=== PATIENT | male | born 1960 | race Caucasian/White ===

== ENCOUNTER 2016-12-31 11:33 | Emergency (ER) | payer OTHER ==
[~2016-12-31 11:33] MED LIST: BUSPAR5 MG PO; CARDIZEM CD180 MG PO; ELIQUIS5 MG PO; GLUCOPHAGE1000 MG PO; GLUCOTROL5 MG PO; PRILOSEC20 MG PO; SYNTHROID75 MCG PO; TOPROL XL 25MG25 MG PO; VITAMIN D5000 UNI1 PO
[2016-12-31 12:21] LABS: BASOPHIL 0.3 % (0-2); EOSINOPHIL 0.9 % (0-5); HCT 46.1 % (42.0-52.0); HGB 15.6 g/dl (13.2-18.0); LYMPHOCYTE 11.4 % (15-48); MCH 29.4 pg (25.0-31.0); MCHC 33.8 g/dL (32.0-36.0); MONOCYTE 9.3 % (0-12); MPV 12.1 fL (6.0-9.5); NEUTROPHIL 78.1 % (41-80); PLT 191 K/uL (150-400); RDW 14.3 % (11.5-14.0); WBC 13.2 K/uL (4.0-10.5)
[2016-12-31 12:28] LABS: ALBUMIN 3.8 g/dL (3.5-5.0); CREATININE 0.9 mg/dL (0.7-1.2); POTASSIUM 3.9 mmol/L (3.5-5.1)
[2016-12-31 12:40] LABS: BILIRUBIN - TOTAL 0.6 mg/dL (0.1-1.0); GLOBULIN (CALCULATION) 3.7 g/dL (2.2-4.2); TOTAL PROTEIN 7.5 g/dL (6.4-8.3)
[2016-12-31 14:39] LABS: BILIRUBIN NEGATIVE (NEGATIVE); BLOOD NEGATIVE Ery/uL (NEGATIVE); CLARITY CLEAR (CLEAR); COLOR YELLOW (YELLOW); GLUCOSE (U) NORMAL (NORMAL); KETONE (U) NEGATIVE (NEGATIVE); LEUKOCYTES NEGATIVE Leu/uL (NEGATIVE); NITRITE NEGATIVE (NEGATIVE); PROTEIN NEGATIVE (NEGATIVE); UROBILINOGEN 0.2 mg/dL (0.2-1.0); pH 5.5 (5.0-9.0)
[2016-12-31 14:51] LABS: AMPHETAMINES NEGATIVE (NEGATIVE); BARBITURATES NEGATIVE (NEGATIVE); BENZODIAZEPINES NEGATIVE (NEGATIVE); COCAINE NEGATIVE (NEGATIVE); MARIJUANA (THC) POSITIVE (NEGATIVE); METHADONE NEGATIVE (NEGATIVE); TRICYCLIC ANTIDEPRESSANT NEGATIVE (NEGATIVE)
== END 2016-12-31 16:53 | disposition home or self-care (01) ==
LOC: FER 11:33
PROVIDERS: Emergency Medicine
DX: K57.32 Diverticulitis of large intestine without perforation or abscess without bleeding (principal); I71.4 Abdominal aortic aneurysm, without rupture; Z87.442 Personal history of urinary calculi; N48.89 Other specified disorders of penis; R00.0 Tachycardia, unspecified; F17.210 Nicotine dependence, cigarettes, uncomplicated
CPT/HCPCS: 36415; 80053; 80305; 81003; 85025; J1885; J2405; Q9967

== ENCOUNTER 2020-07-25 09:12 | Emergency (ER) | payer OTHER ==
[~2020-07-25 09:12] MED LIST changes: +ALLOPURINOL100 MG PO; +ALOGLIPTIN6.25 MG PO; +ASPIRIN CHEWABL81 MG PO; +BUSPIRONE HCL15 MG PO; +COLCHICINE0.6 M1 PO; +GABAPENTIN600 MG PO; +GLUCOPHAGE850 MG PO; +LANTUS **100 UNITS/ IJ; +LIPITOR20 MG PO; +LIPITOR40 MG PO; +MELATONIN5 M2 PO; +NORCO 5-325 TA1 EACH PO; +PROTONIX 40MG T40 MG PO; +SYMBICORT 80-10.2 GM PO; +SYNTHROID25 MCG PO; +XARELTO10 MG PO; +ZESTRIL5 MG PO
[2020-07-25 10:07] LABS: BASOPHIL 0.7 % (0-2); EOSINOPHIL 1.4 % (0-5); HCT 54.1 % (42.0-52.0); HGB 17.8 g/dl (13.2-18.0); MCH 28.8 pg (25.0-31.0); MCHC 32.9 g/dL (32.0-36.0); MCV 87.7 fL (78.0-100.0); MONOCYTE 8.1 % (0-12); MPV 12.4 fL (6.0-9.5); NRBC 0; PLT 169 K/uL (150-400); RBC 6.17 M/uL (4.70-6.00); RDW 14.3 % (11.5-14.0); WBC 10.1 K/uL (4.0-10.5)
[2020-07-25 10:11] LABS: PROTHROMBIN TIME 12.5 SECONDS (11.4-13.6); PTT 27.9 SECONDS (22.2-34.7)
[2020-07-25 10:30] LABS: ALBUMIN 3.2 g/dL (3.4-5.0); BILIRUBIN - TOTAL 0.5 mg/dL (0.2-1.0); BUN/CREAT RATIO (CALC) 18.2 RATIO; CREATININE 0.77 mg/dL (0.67-1.17); GLOBULIN (CALCULATION) 4.4 g/dL; POTASSIUM 3.9 mmol/L (3.5-5.1); TOTAL PROTEIN 7.6 g/dL (6.4-8.2)
== END 2020-07-25 15:19 | disposition other institution (70) ==
LOC: FER 09:12
PROVIDERS: Emergency Medicine
DX: I63.9 Cerebral infarction, unspecified (principal); R53.1 Weakness; R47.9 Unspecified speech disturbances; Z86.73 Personal history of transient ischemic attack (TIA), and cerebral infarction without residual deficits; Z88.0 Allergy status to penicillin; Z88.1 Allergy status to other antibiotic agents; Z91.018 Allergy to other foods
CPT/HCPCS: 36415; 70450; 70551; 80053; 85025; 85610; 85730; 93005; J3490; J7030

== ENCOUNTER 2020-10-07 18:14 | Emergency (ER) | payer OTHER ==
[2020-10-07 18:38] LABS: BASOPHIL 0.6 % (0-2); EOSINOPHIL 0.4 % (0-5); HGB 16.6 g/dl (13.2-18.0); LYMPHOCYTE 13.8 % (15-48); MCH 29.6 pg (25.0-31.0); MCHC 33.2 g/dL (32.0-36.0); MCV 89.3 fL (78.0-100.0); MONOCYTE 10.1 % (0-12); MPV 12.4 fL (6.0-9.5); NEUTROPHIL 74.5 % (41-80); NRBC 0; PLT 215 K/uL (150-400); RDW 14.6 % (11.5-14.0); WBC 13.8 K/uL (4.0-10.5)
[2020-10-07 18:57] LABS: INR 1.86 (0.9-1.2); PROTHROMBIN TIME 20.4 SECONDS (11.4-13.6); PTT 39.9 SECONDS (22.2-34.7)
[2020-10-07 18:58] LABS: D-DIMER 0.53 ug/mLFEU (0.00-0.41)
[2020-10-07 19:05] LABS: ALBUMIN 3.4 g/dL (3.4-5.0); BILIRUBIN - TOTAL 0.9 mg/dL (0.2-1.0); BUN/CREAT RATIO (CALC) 11.2 RATIO; CREATININE 1.07 mg/dL (0.67-1.17); GLOBULIN (CALCULATION) 4.3 g/dL; MAGNESIUM 1.3 mg/dL (1.8-2.4); POTASSIUM 3.8 mmol/L (3.5-5.1); TOTAL PROTEIN 7.7 g/dL (6.4-8.2)
[2020-10-07 19:36] LABS: BILIRUBIN NEGATIVE (NEGATIVE); BLOOD NEGATIVE Ery/uL (NEGATIVE); CLARITY CLEAR (CLEAR); COLOR YELLOW (YELLOW); GLUCOSE (U) NORMAL (NORMAL); LEUKOCYTES NEGATIVE Leu/uL (NEGATIVE); NITRITE NEGATIVE (NEGATIVE); PROTEIN 2+ mg/dL (NEGATIVE); SPECIFIC GRAVITY >=1.030 (1.001-1.030); UROBILINOGEN 0.2 mg/dL (0.2-1.0); pH 5.5 (5.0-9.0)
[2020-10-07 19:42] LABS: AMPHETAMINES NEGATIVE (NEGATIVE); BARBITURATES NEGATIVE (NEGATIVE); ECSTASY (MDMA) NEGATIVE (NEGATIVE); MARIJUANA (THC) POSITIVE (NEGATIVE); METHADONE NEGATIVE (NEGATIVE); OPIATES NEGATIVE (NEGATIVE)
[2020-10-07 19:43] LABS: OXYCODONE NEGATIVE (NEGATIVE)
[2020-10-07 19:44] LABS: BACTERIA 1+; MUCOUS TRACE; URINARY RBC RARE; URINARY WBC RARE
== END 2020-10-07 20:06 | disposition other institution (70) ==
LOC: FER 18:14
PROVIDERS: Emergency Medicine
DX: I21.3 ST elevation (STEMI) myocardial infarction of unspecified site (principal); I48.91 Unspecified atrial fibrillation; I25.2 Old myocardial infarction; I10 Essential (primary) hypertension; E11.9 Type 2 diabetes mellitus without complications; F17.210 Nicotine dependence, cigarettes, uncomplicated; Z98.890 Other specified postprocedural states; Z95.5 Presence of coronary angioplasty implant and graft; Z20.822 Contact with and (suspected) exposure to COVID-19
CPT/HCPCS: 36415; 71045; 80053; 80305; 81001; 83735; 83880; 84443; 84484; 85025; 85379; 85610; 85730; 93005; J1644; J2060; U0002

== ENCOUNTER 2022-04-04 15:09 | Emergency (ER) | payer MEDICARE, OTHER ==
[2022-04-04 15:42] LABS: BASOPHIL 0.3 % (0-2); EOSINOPHIL 0.1 % (0-5); HCT 48.9 % (42.0-52.0); HGB 15.6 g/dl (13.2-18.0); LYMPHOCYTE 3.4 % (15-48); MCHC 31.9 g/dL (32.0-36.0); MCV 87.8 fL (78.0-100.0); MONOCYTE 4.1 % (0-12); MPV 12.4 fL (6.0-9.5); NEUTROPHIL 91.7 % (41-80); NRBC 0; PLT 225 K/uL (150-400); RBC 5.57 M/uL (4.70-6.00); RDW 14.1 % (11.5-14.0)
[2022-04-04 15:56] LABS: INR 1.05 (0.9-1.2); PROTHROMBIN TIME 13.4 SECONDS (11.9-13.9); PTT 29.3 SECONDS (24.9-34.6)
[2022-04-04 16:06] LABS: ALBUMIN 3.4 g/dL (3.4-5.0); ALKALINE PHOSHATASE 111 U/L (46-116); ALT 15 U/L (16-63); AST 15 U/L (15-37); BILIRUBIN - TOTAL 0.6 mg/dL (0.2-1.0); BUN 17 mg/dL (7-18); BUN/CREAT RATIO (CALC) 19.1 RATIO; CHLORIDE 105 mmol/L (98-107); CO2 (BICARBONATE) 25 mmol/L (21-32); CPK 116 U/L (39-308); CREATININE 0.89 mg/dL (0.67-1.17); GLOBULIN (CALCULATION) 4.9 g/dL; GLUCOSE 224 mg/dL (74-106); POTASSIUM 4.2 mmol/L (3.5-5.1); TOTAL PROTEIN 8.3 g/dL (6.4-8.2)
[2022-04-04 16:07] LABS: ACETAMINOPHEN (TYLENOL) < 2.0 ug/mL (10.0-30.0)
[2022-04-04 17:01] LABS: BILIRUBIN NEGATIVE (NEGATIVE); BLOOD 2+ Ery/uL (NEGATIVE); CLARITY CLEAR (CLEAR); COLOR YELLOW (YELLOW); GLUCOSE (U) TRACE mg/dL (NORMAL); LEUKOCYTES NEGATIVE Leu/uL (NEGATIVE); NITRITE NEGATIVE (NEGATIVE); PROTEIN 2+ mg/dL (NEGATIVE); SPECIFIC GRAVITY 1.015 (1.001-1.030); UROBILINOGEN 0.2 mg/dL (0.2-1.0); pH 5.5 (5.0-9.0)
[2022-04-04 17:08] LABS: URINARY WBC RARE
[2022-04-04 17:37] LABS: ECSTASY (MDMA) NEGATIVE (NEGATIVE); MARIJUANA (THC) POSITIVE (NEGATIVE); METHADONE NEGATIVE (NEGATIVE); OPIATES NEGATIVE (NEGATIVE)
[2022-04-04 17:38] LABS: AMPHETAMINES NEGATIVE (NEGATIVE); BARBITURATES NEGATIVE (NEGATIVE); OXYCODONE NEGATIVE (NEGATIVE)
== END 2022-04-04 17:06 | disposition other institution (70) ==
LOC: FER 15:09
PROVIDERS: Emergency Medicine
DX: I63.9 Cerebral infarction, unspecified (principal); G81.94 Hemiplegia, unspecified affecting left nondominant side; U07.1 COVID-19; R29.717 NIHSS score 17; I51.7 Cardiomegaly; E11.9 Type 2 diabetes mellitus without complications
CPT/HCPCS: 36415; 36600; 80053; 80305; 81001; 82140; 82550; 82803; 83605; 84145; 84484; 85025; 85610; 85730; 87040; 87088; 93005; 94640; 94664; G0480; J1956; U0002